=== PATIENT | male | born 1950 | race Caucasian/White ===

== ENCOUNTER 2017-11-01 19:15 | Inpatient (IN) | payer MEDICARE, OTHER, MEDICAID ==
[~2017-11-01] VITALS: Ht 182.9 cm; Wt 84.8 kg
[~2017-11-01 19:15] MED LIST: ABILIFY30 MG; CEPHALEXIN 500500 M3 PO; COLACE100 MG PO; DEPAKOTE 250MG250 M1 PO; DEPAKOTE ER500 MG PO; HYDROCODONE-AP1 EAC6 PO; HYTRIN 5 M5 MG/1 CAP PO; NORCO 5-325 TA1 EACH PO; PERCOCET 5-3251 EACH PO; RISPERDAL 1 MG T1 MG PO; SERTRALINE HCL50 MG PO; TRAZODONE HCL50 MG PO; VISTARIL 25 MG25 M1 PO
[2017-11-01 19:23] VITALS: BP 125/80
[2017-11-01] MEDS ORDERED: DEPAKOTE ER500 MG PO (19:28)
[2017-11-01] MEDS ORDERED: PROSCAR 5MG TABL5 MG PO (19:29)
[2017-11-01] MEDS ORDERED: ASPIR 8181 MG PO (19:29)
[2017-11-01] MEDS ORDERED: LEVAQUIN 500 M500 M2 PO (19:30)
[2017-11-01] MEDS ORDERED: FLOMAX0.4 MG PO (19:33)
[2017-11-01] MEDS ORDERED: VENTOLIN HFA INH8 GM INH (19:34)
[2017-11-01] MEDS ORDERED: ALBUTEROL2.5 MG/31 INH (19:34)
[2017-11-01 19:52] LABS: ABSOLUTE EOSINOPHILS 0.1 thou/uL (0.0-0.7); ABSOLUTE LYMPHOCYTES 1.5 thou/uL (0.8-5.3); ABSOLUTE MONOCYTES 0.5 thou/uL (0.0-1.2); ABSOLUTE NEUTROPHILS 4.5 thou/uL (1.6-8.1); BASOPHILS 0.6 %; EOSINOPHILS 1.9 %; HEMOGLOBIN 14.9 gm/dL (14.0-18.0); LYMPHOCYTES 22.5 %; MCH 30.1 pg (26.0-34.0); MCHC 33.9 g/dL (28.0-37.0); MCV 88.8 fL (80.0-100.0); MONOCYTES 6.8 %; MPV 7.6 fl. (7.2-11.1); NUCLEATED RBCS 0 /100WBC; PLATELET COUNT* 155 thou/uL (150-400); POLYS 68.2 %; RBC 4.95 mil/uL (4.50-6.00); RDW-CV 14.6 % (10.5-14.5); WBC 6.7 thou/uL (4.0-11.0)
[2017-11-01 20:05] LABS: ANION GAP 8 mmol/L (7-16); APTT 29.3 Seconds (25.0-31.3); BUN 15 mg/dL (7-18); CALCIUM 8.6 mg/dL (8.5-10.1); CHLORIDE 104 mmol/L (98-107); CO2 28 mmol/L (21-32); CREATININE 1.1 mg/dL (0.6-1.3); GLUCOSE 126 mg/dL (70-99); POTASSIUM 4.2 mmol/L (3.5-5.1); PROTIME 10.1 Seconds (9.20-11.50); SODIUM 140 mmol/L (136-145)
[2017-11-01 20:23] LABS: ALBUMIN 3.3 g/dL (3.4-5.0); ALKALINE PHOSPHATASE 91 U/L (46-116); CK-MB MASS 6.4 ng/mL (<0.5-3.6); LIPASE 158 U/L (73-393); MAGNESIUM 1.8 mg/dL (1.8-2.4); NT-PRO BRAIN NAT PEPTIDE 420 pg/mL (<300); SGOT 24 U/L (15-37); SGPT 30 U/L (30-65); TOTAL BILIRUBIN 0.2 mg/dL (<0.1-1.0); TOTAL PROTEIN 7.1 g/dL (6.4-8.2); TROPONIN-I LEVEL <0.06 ng/mL (<0.06)
[2017-11-01 21:42] VITALS: BP 117/73
[2017-11-02 04:00] VITALS: BP 129/81
--- NOTE | 2017-11-02 05:44 | NUR ---
PT ADMITTED FROM ER. HISTORY AND ASSESSMENT COMPLETE. O2 2L NC. IVF INFUSING. DENIES PAIN. ORIENTED TO ROOM, CALL LIGHT, AND BED CONTROLS. PT VERBALIZED UNDERSTANDING.
--- NOTE | 2017-11-02 07:45 | NUR ---
ASSUMED CARE OF PT ASSESSED AND DOCUMENTED. PT ON CARDIAC MONITER TRACING NSR HR 80. PT IS A&O WITH NO C/O PAIN. VSS WNL. PT IS AFEBRILE. HE IS ON 2L OF 02. BED IS IN LOW POSITION CALL LIGHT IS IN REACH. WM.
[2017-11-02 07:54] VITALS: BP 132/79
[2017-11-02 11:50] VITALS: BP 137/67
--- NOTE | 2017-11-02 13:14 | 2DMMODE ---
[place] [address] 2 D/M-MODE ECHOCARDIOGRAM Name: TIRSO BETANCOURT Room: [facility] IN [facility]#: [id number] Admission: 11/01/17 Attend Phys: Chani Melo, Discharge: Date of : 50 Date of Service: 11/02/17 1314 Report #: [id number] THIS REPORT FOR: //name// APPROVED REPORT Study performed: 11/02/2017 10:49:21 EXAM: Comprehensive 2D, Doppler, and color-flow Echocardiogram Patient Location: In-Patient Room #: [facility] Status: routine BSA: 2.07 HR: 72 bpm BP: 132/79 mmHg Rhythm: NSR Other Information Study Quality: Good Indications Aortic Valve Disease Dyspnea Chest Pain 2D Dimensions LVEF(%): 79.52 (>50%) IVSd: 14.05 (7-11mm) LVOT Diam: 23.43 (18-24mm) LVDd: 46.03 mm PWd: 12.26 (7-11mm) Ascending Ao: 37.47 (22-36mm) LVDs: 23.91 (25-40mm) Aortic Root: 30.82 mm Moran's LVEF: 79.52 % Volumes Left Atrial Volume (Systole) LA ESV Index: 23.10 mL/m2 Aortic Valve AoV Peak Pj.: 4.32 m/s AO Peak Gr.: 74.77 mmHg LVOT Max P.44 mmHg AO Mean Gr.: 45.30 mmHg LVOT Mean P.94 mmHg LVOT Max V: 0.93 m/s AO V2 VTI: 93.29 cm LVOT Mean V: 0.65 m/s MAMIE (VTI): 1.05 cm2 LVOT V1 VTI: 22.72 [place] [address] 2 D/M-MODE ECHOCARDIOGRAM Name: TIRSO BETANCOURT Room: [address] IN ..#: [id number] Admission: 11/01/17 Attend Phys: Chani Melo, Discharge: Date of : 50 Date of Service: 11/02/17 1314 Report #: [id number] Mitral Valve E/A Ratio: 0.84 MV Decel. Time: 294.22 ms MV E Max Pj.: 1.03 m/s MV PHT: 85.32 ms MVA (PHT): 2.58 cm2 TDI E/Lateral E': 11.44 E/Medial E': 11.44 Medial E' Pj.: 0.09 m/s Lateral E' Pj.: 0.09 m/s Pulmonary Valve PV Peak Pj.: 1.24 m/s PV Peak Gr.: 6.16 mmHg Left Ventricle The left ventricle is normal size. There is normal LV segmental wall motion. Mild concentric left ventricular hypertrophy. Left ventricular systolic function is normal. The left ventricular ejection fraction is within the normal range. LVEF is 60-65%. Grade I - abnormal relaxation pattern. Right Ventricle The right ventricle is normal size. The right ventricular systolic function is normal. Atria The left atrium size is normal. The right atrium size is normal. Aortic Valve Moderate aortic valve sclerosis. No aortic regurgitation is present. Moderate aortic stenosis. Mitral Valve Mild mitral annular calcification. There is no mitral valve regurgitation noted. No evidence of mitral valve stenosis. Tricuspid Valve The tricuspid valve is normal in structure. Trace tricuspid regurgitation. Unable to assess PA pressure. Pulmonic Valve The pulmonary valve is normal in structure. There is no pulmonic [place] [address] 2 D/M-MODE ECHOCARDIOGRAM Name: SERAFINTIRSO BENNETTNE Room: [address] IN [facility]#: [id number] Admission: 11/01/17 Attend Phys: Chani Melo, Discharge: Date of : 50 Date of Service: 11/02/17 1314 Report #: [id number] Great Vessels The aortic root is normal in size. IVC is normal in size and collapses with >50% inspiration Pericardium There is no pericardial effusion. <Conclusion> The left ventricle is normal size. Mild concentric left ventricular hypertrophy. Left ventricular systolic function is normal. The left ventricular ejection fraction is within the normal range. LVEF is 60-65%. Grade I - abnormal relaxation pattern. The right ventricle is normal size. The left atrium size is normal. Moderate aortic valve sclerosis. No aortic regurgitation is present. Moderate aortic stenosis. Mild mitral annular calcification. There is no mitral valve regurgitation noted. The tricuspid valve is normal in structure. IVC is normal in size and collapses with >50% inspiration There is no pericardial effusion. There is normal LV segmental wall motion. <ELECTRONICALLY SIGNED> By: Chalo Ramesh MD, FACC 11/02/17 1314 13 13 Chalo Ramesh MD, FACC /INF
--- NOTE | 2017-11-02 15:16 | NUR ---
CM ASSESSMENT: Pt is A&O. Resides at home alone. Independent with ADLs, continues to cook, clean and drive. Pt's girlfriend is supportive and involved in POC. Pt has a neb, no other DME. No hx of HH or SNF. Goal is to return home once medically stable for dc. Following
[2017-11-02 16:00] VITALS: BP 120/67
--- NOTE | 2017-11-02 16:15 | EKG ---
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1950 Requested By: Betito Kaye Order Number: [id number] MD: Chalo Ramesh Measurements Intervals [place] Rate: 87 P: 57 DE: 164 QRS: 75 QRSD: 89 T: 50 QT: 335 QTc: 403 Interpretive Statements Sinus rhythm Anterior infarct, old possible Compared to ECG 09/28/2015 22:43:51 Incomplete right bundle-branch block no longer present Myocardial infarct finding still present Electronically Signed On 11-02-2017 16:15:38 CDT by Chalo Ramesh [email or web address] <ELECTRONICALLY SIGNED> By: Chalo Ramesh MD, [facility] 11/02/17 1615 22 22 Chalo Ramesh MD, [facility] /EPI
--- NOTE | 2017-11-02 17:27 | NUR ---
PT HAS RESTED IN HIS ROOM WITH AT BEDSIDE. NEW ORDER FOR A NICOTINE PATCH HELPED PTS ANXIETY. PT IS TO BE NPO AFTER MIDNIGHT FOR STRESS TEST TOMORROW. VERIFIED PTS DEPOKOTE ORDER FOR PHARMACY. EDUCATION GIVEN ON DEMAND. HOURLY ROUNDING COMPLETE.
[2017-11-02 20:00] VITALS: BP 123/76
[2017-11-03 00:41] VITALS: BP 129/71
[2017-11-03 03:53] VITALS: BP 111/69
[2017-11-03 05:03] LABS: HEMATOCRIT 40.7 % (42.0-52.0); HEMOGLOBIN 13.8 gm/dL (14.0-18.0); MCH 30.1 pg (26.0-34.0); MCHC 33.8 g/dL (28.0-37.0); MCV 89.1 fL (80.0-100.0); MPV 7.8 fl. (7.2-11.1); RBC 4.57 mil/uL (4.50-6.00); RDW-CV 15.1 % (10.5-14.5); WBC 10.9 thou/uL (4.0-11.0)
--- NOTE | 2017-11-03 05:17 | NUR ---
PT ALERT ORIENTED. NPO SINCE MN. TELEMETRY SHOWS ST. AMBULATES IN ROOM WITH STEADY GAIT. O2 AT 2 LITERS NC. DENIES PAIN. WILL CONTINUE TO MONITOR.
[2017-11-03 05:22] LABS: ALBUMIN 2.8 g/dL (3.4-5.0); CALCIUM 8.4 mg/dL (8.5-10.1); MAGNESIUM 1.8 mg/dL (1.8-2.4); POTASSIUM 5.1 mmol/L (3.5-5.1); TOTAL BILIRUBIN 0.1 mg/dL (<0.1-1.0)
[2017-11-03 08:00] VITALS: BP 137/63
--- NOTE | 2017-11-03 08:00 | NUR ---
AM ASSESSEMENT COMPLETE, DEFER TO COMPUTER CHARTING. 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 DENIES CHEST PAIN, DIZZINESS OR ANY PAIN AT THIS TIME. LUNGS CTA, - 02 ON 2L PER NC. UP IN CHAIR, CALL LIGHT WITHIN REACH. WILL CONTINUE TO MONITOR.
[2017-11-03] MEDS ORDERED: DOXYCYCLINE 10100 MG PO (11:48)
[2017-11-03] MEDS ORDERED: PREDNISONE 10 M10 M1 PO (11:48)
[2017-11-03] MEDS ORDERED: NICOTINE TRANSD21 M1 TRANSDERM (11:48)
[2017-11-03 11:59] VITALS: BP 144/74
--- NOTE | 2017-11-03 15:23 | NUR ---
STRESS TEST COMPLETED EARLIER, AWAITING FOR RESULTS. PATIENT UP AD SHARDA IN ROOM GAIT STEADY, NO COMPLAINTS OF CHEST PAIN. 02 TITRATED TO ROOM AIR 02 SAT 94%.
[2017-11-03 15:37] VITALS: BP 128/75
--- NOTE | 2017-11-03 16:26 | CARDNUC ---
[place] [address] CARDIAC NUCLEAR IMAGING REPORT Name: TIRSO BETANCOURT Room: [address] IN [facility]#: [id number] Admission: 11/01/17 Attend Phys: Chani Melo, Discharge: Date of : 50 Date of Service: 11/03/17 1626 Report #: [id number] THIS REPORT FOR: //name// APPROVED REPORT Study performed: 11/02/2017 14:55:00 Exam: Nuclear Stress Test Indication: chest pain, dyspnea Patient Location: In-Patient Room #: 215 Stress Tech: Margy Whaley Stress Nurse: Arlene Arenas RN Ht: 6 ft 0 in Wt: 187 lbs BSA: 2.07 m2 BMI: 25.35 Medical History Medical History: copd Medications: asprin 81, enoxaparin Allergies: nkda Exercise History: Sedentary Stress Test Details Stress Test: Pharmacologic stress testing performed using 0.4 mg of regadenoson per 5 mL given IV over 10 seconds. Reason for pharmacologic stress test: physical limitation. HR Resting HR: 86 bpm Max Heart Rate (APMHR): 153 bpm Max HR Achieved: 100 bpm Target HR (85% APMHR): 130 bpm % of APMHR: 65 Recovery HR: 96 bpm HR response to stress: Normal HR response to stress BP Resting BP: 146/79 mmHg Max BP: 123/72 mmHg BP response to stress: Normal blood pressure response to stress. ECG Resting ECG: Sinus Rhythm Stress ECG: Sinus Rhythm ST Change: [place] [address] CARDIAC NUCLEAR IMAGING REPORT Name: TIRSO BETANCOURT Room: [address]#: [id number] Admission: 11/01/17 Attend Phys: Chani Melo, Discharge: Date of : 50 Date of Service: 11/03/17 1626 Report #: [id number] Arrhythmia: None Recovery ECG: Sinus Rhythm Recovery ST Change: None Recovery Arrhythmia: None Clinical Reason for Termination: Completed protocol Stress Symptoms: nausea Exercise duration: 0 min sec Exercise capacity: i METs Stress ECG Conclusion negative NM EXAM: Myocardial Perfusion REST/STRESS Imaging Protocol: Rest Tc-99m/Stress Tc-99m 1 day Resting Data Rest SPECT myocardial perfusion imaging was performed in supine position 30 minutes following the intravenous injection of 11.3 mCi of Tc-99m Sestamibi. Time of rest injection: 1000 Time of rest imagin The images were gated to evaluate regional wall motion and calculate left ventricular ejection fraction. Administration Route: IV Administration Site: Left AC Pharmacologic Stress Pharmacologic stress test was performed by injecting Regadenoson 0.4 mg IV push followed by the intravenous injection of 32.1 mCi of Tc-99m Sestamibi. Time of stress injection: 1130 Time of stress imagin Administration Route: IV Administration Site: Left AC Heart Rate at time of stress injection: 100 bpm. Gated Stress SPECT was performed 90 minutes after stress injection. The images were gated to evaluate regional wall motion and calculate left ventricular ejection fraction. Prone imaging was performed. Study Quality Study: Good Artifact: [place] [address] CARDIAC NUCLEAR IMAGING REPORT Name: TIRSO BETANCOURT Room: [address] IN [facility].#: [id number] Admission: 11/01/17 Attend Phys: Chani Melo, Discharge: Date of : 50 Date of Service: 11/03/17 1626 Report #: [id number] Lung Uptake: Normal Study Data At rest, the left ventricular ejection fraction was 73%.. Post stress, the left ventricular ejection was 83%.. TID = 1.15. Perfusion Review of rest data reveals normal perfusion, without perfusion defects.Imaging obtained following vasodilator stress demonstrate a similar, uniform uptake of tracer without defects. Prone imaging was normal. LVEDV is normal.No segental wall motion abnormality seen. Wall Motion normal Nuclear Conclusion ECG Findings: negative for ischemia Clinical Findings: negative for ischemia Nuclear Findings: negative for ischemia Exercise Capacity: not assessed Left Ventricular Function: normal Risk Study: low normal perfusion nuclear stress test <Conclusion> negative <ELECTRONICALLY SIGNED> By: Levon Caldwell MD, FACC 11/03/171625 25 25 Levon Caldwell MD, FACC /INF
--- NOTE | 2017-11-03 16:36 | NUR ---
NOTIFIED BY CARDIOLOGY, STRESS TEST RESULTS NEGATIVE. DISCHARGE ORDERS RECEIVED.
[2017-11-03 16:49] VITALS: BP 128/75
== END 2017-11-03 18:00 | disposition home or self-care (01) | DRG 202 ==
LOC: M.ERS 19:15 → M.2W 20:35 → M.TBA-ER 20:35 → M.2W 21:21
PROVIDERS: Family Medicine; ADMIT Internal Medicine
DX: J20.9 Acute bronchitis, unspecified (principal); J44.1 Chronic obstructive pulmonary disease with (acute) exacerbation; E44.1 Mild protein-calorie malnutrition; J44.0 Chronic obstructive pulmonary disease with (acute) lower respiratory infection; I20.9 Angina pectoris, unspecified; F32.9 Major depressive disorder, single episode, unspecified; F41.9 Anxiety disorder, unspecified; F17.210 Nicotine dependence, cigarettes, uncomplicated; Z79.899 Other long term (current) drug therapy; I25.2 Old myocardial infarction

== ENCOUNTER 2021-06-04 17:21 | Emergency (ER) | payer MEDICARE, OTHER, MEDICAID ==
[~2021-06-04] VITALS: Ht 175.3 cm; Wt 93.0 kg
[~2021-06-04 17:21] MED LIST changes: +ALBUTEROL2.5 MG/31 INH; +ASPIR 8181 MG PO; +DOXYCYCLINE 10100 MG PO; +FLOMAX0.4 MG PO; +LEVAQUIN 500 M500 M2 PO; +NICOTINE TRANSD21 M1 TRANSDERM; +PREDNISONE 10 M10 M1 PO; +PROSCAR 5MG TABL5 MG PO; +VENTOLIN HFA INH8 GM INH
[2021-06-04 18:38] LABS: ABSOLUTE BASOPHILS 0.1 thou/uL (0.0-0.2); ABSOLUTE LYMPHOCYTES 1.3 thou/uL (0.8-5.3); ABSOLUTE MONOCYTES 0.8 thou/uL (0.0-1.2); ABSOLUTE NEUTROPHILS 10.7 thou/uL (1.6-8.1); BASOPHILS 0.5 %; EOSINOPHILS 0.2 %; HEMATOCRIT 44.8 % (42.0-52.0); HEMOGLOBIN 15.1 gm/dL (14.0-18.0); MCH 29.7 pg (26.0-34.0); MCHC 33.7 g/dL (28.0-37.0); MCV 88.1 fL (80.0-100.0); MONOCYTES 6.1 %; MPV 7.7 fl. (7.2-11.1); NUCLEATED RBCS 0 /100WBC; PLATELET COUNT* 170 thou/uL (150-400); POLYS 83.2 %; RBC 5.09 mil/uL (4.50-6.00); WBC 12.9 thou/uL (4.0-11.0)
[2021-06-04 18:46] LABS: CALCIUM 8.7 mg/dL (8.5-10.1); CREATININE 1.1 mg/dL (0.6-1.3); POTASSIUM 4.7 mmol/L (3.5-5.1)
[2021-06-04 18:51] LABS: ALBUMIN 3.6 g/dL (3.4-5.0); TOTAL BILIRUBIN 0.6 mg/dL (<0.1-1.0); TOTAL PROTEIN 7.9 g/dL (6.4-8.2)
[2021-06-04] MEDS ORDERED: ZPAK PO (20:05)
[2021-06-04] MEDS ORDERED: PREDNISONE 20 M20 MG PO (20:05)
[2021-06-04] MEDS ORDERED: APAP W/CODEINE1 TA2 PO (20:05)
[2021-06-04 20:15] VITALS: BP 136/73
--- NOTE | 2021-06-05 11:18 | EKG ---
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1950 Requested By: Pooja Lou Order Number: [id number] MD: Jairon Gonzalez Measurements Intervals [place] Rate: 99 P: 74 DC: 163 QRS: 81 QRSD: 98 T: 70 QT: 329 QTc: 423 Interpretive Statements Sinus rhythm Left atrial enlargement Borderline right axis deviation Borderline ST elevation, anterior leads Baseline wander in lead(s) V1,V2 Compared to ECG 11/01/2017 19:23:30 Atrial abnormality now present ST (T wave) deviation now present Myocardial infarct finding no longer present Electronically Signed On 06-05-2021 11:18:42 CDT by Jairon Gonzalez [email or web address] <ELECTRONICALLY SIGNED> By: Jairon Gonzalez MD, FACC 06/05/21 1118 19 19 Jairon Gonzalez MD, FACC /EPI
== END 2021-06-04 20:15 | disposition home or self-care (01) ==
LOC: M.ERS 17:21
PROVIDERS: Physician Assistant
DX: J20.9 Acute bronchitis, unspecified (principal); Z20.822 Contact with and (suspected) exposure to COVID-19; J44.0 Chronic obstructive pulmonary disease with (acute) lower respiratory infection; F32.9 Major depressive disorder, single episode, unspecified; F41.9 Anxiety disorder, unspecified; I25.2 Old myocardial infarction; F17.210 Nicotine dependence, cigarettes, uncomplicated; Z79.899 Other long term (current) drug therapy; Z79.82 Long term (current) use of aspirin